=== PATIENT | female | born 1965 | race Caucasian/White ===

== ENCOUNTER 2024-04-01 17:55 | Emergency (ER) | payer OTHER ==
[~2024-04-01] VITALS: Ht 162.6 cm; Wt 68.0 kg
[2024-04-01 18:02] VITALS: O2SAT 98
[2024-04-01] MEDS ORDERED: EPIN0.3P3 IM (18:34)
[2024-04-01] MEDS ORDERED: AMOX1TAB16 MT (18:34)
[2024-04-01] MEDS: KETOROLAC 30MG/ML VIAL IM ONE (19:07)
[2024-04-01] MEDS: IBUPROFEN 400MG TABLET PO ONE (19:09)
[2024-04-01 19:10] VITALS: BP 133/78; PULSE 88; RESP 18; TEMP 37.05852; O2SAT 98
== END 2024-04-01 19:11 | disposition home or self-care (01) ==
LOC: ER 17:55
DX: K01.1 Impacted teeth (principal); K04.7 Periapical abscess without sinus; Z88.0 Allergy status to penicillin
CPT/HCPCS: 99283